=== PATIENT | female | born 1950 | race Two or more races ===

== ENCOUNTER 2020-07-12 17:25 | Outpatient (REF) | payer MEDICARE, MEDICAID, SELFPAY ==
--- NOTE | ~2020-07-12 | XR_ITS ---
EXAMINATION: XR HAND, RIGHT CLINICAL INFORMATION: Right hand and finger pain COMPARISON: None TECHNIQUE: PA, lateral, and oblique views of the right hand. FINDINGS: There is bilateral loss of PIP and DIP joint space with mild periarticular spurring PIP joint fifth digit and erosive changes DIP joints third digit. No acute fracture or dislocation seen. No lytic process. Minimal styloid process fracture. The soft tissues are normal. XR/XR hand RT min 3V IMPRESSION: Mild degenerative changes PIP and DIP joints with periarticular spurring. Mild soft tissue swelling PIP joint fifth digit likely secondary to arthritis. There is no visible acute fracture or dislocation seen in the right hand and wrist area. There is old ulnar styloid process fracture.
== END 2020-07-12 17:26 | disposition home or self-care (01) ==
LOC: HO.XRAY 17:25
PROVIDERS: PCP Family Medicine; Visit Provider Emergency Medicine
DX: M79.641 Pain in right hand (principal); M79.644 Pain in right finger(s)
CPT/HCPCS: 73130

== ENCOUNTER 2021-02-26 16:20 | Outpatient (REF) | payer MEDICARE, MEDICAID, SELFPAY ==
--- NOTE | ~2021-02-26 | MM_ITS ---
EXAMINATION: MM SCREENING DIGITAL BREAST TOMOSYNTHESIS, BILATERAL CLINICAL INFORMATION: Screening. Asymptomatic. The lifetime risk of breast cancer based on the Tyrer-Cuzick Model is 3%. COMPARISON: Mammography: 05/18/2018, 09/06/2015 TECHNIQUE: Digital breast tomosynthesis is performed in both the craniocaudal and mediolateral oblique views along with computer-aided detection (CAD). Synthesized 2D images are generated from the tomosynthesis. Additional bilateral exaggerated CC views are provided. FINDINGS: There are scattered areas of fibroglandular density (ACR BI-RADS breast composition Category b). There are no significant masses, abnormal calcifications, or other abnormalities. There are scattered bilateral ductal secretory, vascular, and round and rim calcifications. The axilla and skin contours are unremarkable. No significant changes. MM/MM tomosynthesis screening BI IMPRESSION: No mammographic evidence of malignancy. ASSESSMENT: BI-RADS 2: Benign RECOMMENDATION: Routine annual mammography screening. This patient's information was entered into a reminder system with a target due date for their next mammogram.
== END 2021-02-26 16:21 | disposition home or self-care (01) ==
LOC: HO.MAMMO 16:20
PROVIDERS: PCP Family Medicine; Visit Provider Family Medicine
DX: Z12.31 Encounter for screening mammogram for malignant neoplasm of breast (principal)
CPT/HCPCS: 77063; 77067

== ENCOUNTER 2022-03-31 15:53 | Outpatient (REF) | payer MEDICARE, MEDICAID, SELFPAY ==
--- NOTE | ~2022-03-31 | XR_ITS ---
EXAMINATION: XR CHEST CLINICAL INFORMATION: Cough COMPARISON: 05/04/2012 TECHNIQUE: 2 views of the chest were obtained. FINDINGS: The lungs are well expanded. There is no focal consolidation, edema, or effusion. No pneumothorax. The cardiomediastinal silhouette is within normal limits. No acute osseous abnormality. Mild degenerative change of the spine. XR/XR chest 2V IMPRESSION: Clear lungs.
== END 2022-03-31 15:54 | disposition home or self-care (01) ==
LOC: HO.XRAY 15:53
PROVIDERS: Absent Provider Family Medicine; PCP Family Medicine; Visit Provider Emergency Medicine
DX: R05.9 Cough, unspecified (principal)
CPT/HCPCS: 71046

== ENCOUNTER 2022-06-05 14:06 | Outpatient (REF) | payer MEDICARE, MEDICAID, SELFPAY ==
--- NOTE | ~2022-06-05 | US_ITS ---
EXAMINATION: US VENOUS ULTRASOUND WITH DOPPLER LOWER EXTREMITY, LEFT CLINICAL INFORMATION: Left leg swelling. COMPARISON: None available. TECHNIQUE: Ultrasound of the deep veins is performed from the hip to the calf with compression sonography and color and pulse Doppler assessment. Spectral analysis with color-flow imaging is performed. FINDINGS: There is normal venous compression and respiratory variation and augmented flow. The visualized common femoral vein, superficial femoral vein, profunda femoral vein, popliteal vein, and the trifurcation region shows no evidence of deep venous thrombosis. There is no significant popliteal fossa cyst. If the patient's symptoms persist, followup ultrasound in 5 days 7 days might be of value to exclude proximal propagation from a non-visualized calf vein. US/US venous duplex LE IMPRESSION: No DVT demonstrated in the left lower extremity.
== END 2022-06-05 14:07 | disposition home or self-care (01) ==
LOC: HO.US 14:06
PROVIDERS: PCP Family Medicine; Visit Provider Emergency Medicine
DX: M79.662 Pain in left lower leg (principal); M79.89 Other specified soft tissue disorders
CPT/HCPCS: 93971

== ENCOUNTER 2023-09-07 12:23 | Outpatient (REF) | payer OTHER, SELFPAY ==
[2023-09-07 13:37] LABS: Estimated Average Glucose 200 mg/dL; Hemoglobin A1c % 8.6 % (<6.0)
[2023-09-07 13:47] LABS: Alanine Aminotransferase 23 U/L (0-31); Alkaline Phosphatase 103 U/L (39-117); Anion Gap 13 (12-20); Aspartate Amino Transferase 18 U/L (5-31); Bilirubin Direct 0.3 mg/dL (0.0-0.5); Bilirubin Total 0.8 mg/dL (0.0-1.0); Blood Urea Nitrogen 10 mg/dL (9-16); Carbon Dioxide 28 mmol/L (22-29); Chloride 103 mmol/L (96-108); Cholesterol 122 mg/dL (<200); Estimated Glomerular Filt Rate > 60; Glucose Random 194 mg/dL (60-115); HDL Cholesterol 36 mg/dL (>40); LDL Cholesterol Calculated 65 mg/dL (<100); Potassium 3.9 mmol/L (3.3-5.1); Sodium 140 mmol/L (135-145); Total Protein 7.6 g/dL (6.5-8.0); Triglycerides 107 mg/dL (<150)
[2023-09-07 14:01] LABS: Creatinine Urine 140.64 mg/dL; Microalbum/Creatinine Ratio Ur 6.3 ug/mg cr (<30)
[2023-09-07 14:06] LABS: TSH reflex Free T4 2.96 uIU/mL (0.32-4.0)
== END 2023-09-07 12:24 | disposition home or self-care (01) ==
LOC: HO.HHCL 12:23
PROVIDERS: Visit Provider Family Medicine
DX: E11.9 Type 2 diabetes mellitus without complications (principal); E03.9 Hypothyroidism, unspecified
CPT/HCPCS: 36415; 80048; 80061; 80076; 82043; 82570; 83036; 84443

== ENCOUNTER 2023-10-06 10:25 | Outpatient (REF) | payer OTHER, SELFPAY | END 2023-10-06 10:26 | disposition home or self-care (01) | LOC: HO.HOSX 10:25 | PROVIDERS: Visit Provider Orthopaedic Surgery | DX: M25.511 Pain in right shoulder (principal) | CPT/HCPCS: 99202 ==

== ENCOUNTER 2023-10-06 15:20 | Outpatient (AMB) | payer OTHER, SELFPAY ==
--- NOTE | 2023-10-06 15:23 | MHC.OFFVIS ---
Vital Signs 10/06/23 15:29 Height 5 ft 2 in Weight 200 lb 9.93 oz BMI 36.7 Intake Visit Reasons: HOUSEKEEPING STAFF Chronic Right Shoulder Pain, no known injury Intake Note: Holli is a 73 year old female who presents to the office today with her spouse for a new patient visit for Chronic Right Shoulder Pain. Reports prior injury about 2-3 years ago. The patient states that she slipped and fell onto her right arm suffering a fracture. The patient states that she has been doing qgfua-ry-[id number] exercises which gave her fairly good relief. She has also been using topical cream which gives her good relief. She does not wish for an injection. The patient states that at this point her right shoulder discomfort is tolerable to her. She reports mild weakness when lifting her right hand above shoulder height. She does not take any medicines for her discomfort. Patient Services Manager Required: Yes Patient Services Manager Language: Graphics Manager Services: Patient Services Manager Present Patient Services Manager Name: DEBRA Robert/LYNNE Medication List - Last Reconciled 10/06/23 by Giorgi Sheffield MD cetirizine 10 mg PO DAILY clobetasol 0.05% topical flash glucose sensor (FreeStyle Loco 2 Sensor kit) As directed insulin glargine (Lantus Solostar U-100 Insulin) units subcut levothyroxine 100 mcg PO DAILY metoprolol succinate ER 25 mg PO DAILY simvastatin 10 mg PO DAILY [facility] Medical History (Updated 10/02/23 @ 12:06 by Giorgi Sheffield MD) Cellulitis of lower extremity Surgical History (System 09/01/23 @ 12:15 by Bela Oscar) H/O colonoscopy History of section History of appendectomy Social History (Updated 10/06/23 @ 15:31 by DEBRA Kaur) Current occupation: rt handed Physical Exam Vital Signs: BMI result Body Mass Index 36.7 Const Other: Well-nourished well-developed very friendly female awake alert and oriented x3 in no acute distress Extrem Other: Bilateral upper extremity examination shows good capillary refill, no skin lesions noted, normal sensation light touch Right shoulder examination shows slightly decreased range of motion when compared to her left shoulder, 4+ out of 5 strength with supraspinatus testing, positive impingement signs, tenderness over her acromioclavicular joint, no instability Assessment & Plan Assessment & Plan (1) Right shoulder pain: Code(s): M25.511 - Pain in right shoulder Category: Medical Plan [address] Buckner presents with right shoulder pain due to impingement syndrome and rotator cuff tendinosis versus possible rotator cuff tearing. I had a lengthy discussion with the patient regarding the treatment options. At this point the patient's symptoms are tolerable to her. She wishes to hold off on a cortisone injection. She does not wish to get an MRI. She will continue with her ehhdz-dl-oytnlu exercises to prevent stiffness. She will follow up with me on an as-needed basis should her symptoms worsen in any way. I spent 20 minutes in seeing the patient and documenting in the medical record. Orders: Orders XR shoulder RT min 2V Today M25.511 - Pain in right shoulder Coding Level of Care Code New Pt Level 3 (55436) Diagnoses Right shoulder pain M25.511
[2023-10-06 15:29] VITALS: BMI 36.7
== END 2023-10-06 15:40 | disposition home or self-care (01) ==
LOC: HO.HOS 15:20
PROVIDERS: PCP Family Medicine; Visit Provider Orthopaedic Surgery
DX: M25.511 Pain in right shoulder (principal)
CPT/HCPCS: 99203

== ENCOUNTER 2024-09-16 12:28 | Outpatient (REF) | payer OTHER, SELFPAY ==
--- OUTSIDE RECORDS SUMMARY | 2024-09-16 12:32 | XMS_ITS | Encounter Summary ---
Author Organization [employer] Address [address] [place] [address] Care Team Providers Care Asbestos Abatement Worker Name Role Phone Radha Gustafson MD Primary Care Provider [phone] Delano Crews MD Unavailable [phone] Encounter Details Date Type Department Care Team ([facility] Contact Info) Description 09/14/2024 Telephone [facility] [address] [place], [place] [phone] Radha Gustafson MD [address] [place], [place] [phone] Social History Tobacco Use Types Packs/Day Years Used Date Smoking Tobacco: Never Passive Smoke Exposure: Never Smokeless Tobacco: Never Alcohol Use Standard Drinks/Week Comments Never 0 (1 standard drink = 0.6 oz pur e alcohol) Depression Answer Date Recorded Patient Health Questionnaire-9 Score 0 03/21/2024 Patient Health Questionnaire-9 Score 0 03/21/2024 Last PHQ-9: Questionnaire Data Not on file 0 03/21/2024 Housing Stability Answer Date Recorded What is your housing situation today? I have devante hagen 09/14/[address] you li ve. Do you have problems with any of the following? None of the above 09/14/2024 Food Insecurity Answer Date Recorded Within the past 12 months, y ou worried that your food would run out before you got money to buy more: Never True 09/14/2024 Within the past 12 months,th e food you bought just didn't last and you didn't have enough money to get more: Never True Transportation Answer Date Recorded In the past 12 months, has l ack of transportation kept you from medical appts, meetings, work or from getting things needed for daily living? No 09/14/2024 Utilities Answer Date Recorded In the past 12 months, has t he electric, gas, oil or water company threatened to shut off services in your home? No 09/14/2024 Depression Answer Date Recorded Patient Health Questionnaire-2 Score 0 03/21/2024 Internet Access Answer Date Recorded Internet Access Q1 No 09/14/2024 Internet Access Q2 I do not want or need it 08/24 Comments Unknown Sex and Gender Information Value Date Recorded Sex Assigned at Female 12/23/2021 10:16 AM EDT Legal Sex Female 10:16 AM EDT Gender Identity Female 12/23/2021 10:16 AM EDT Sexual Orientation Choose not to disclose 2021 10:16 AM EDT documented as of this encounter Miscellaneous Notes * Telephone Encounter - Radha Gustafson MD - 09/14/2024 3:59 PM EDT Please write for incontinence pads dx incontinence. Thank you. documented in this encounter Plan of Treatment Not on file documented as of this encounter Visit Diagnoses Not on filedocumented in this encounter Additional Health Concerns Assessment Noted Time PHQ-9 Depression Total Score: 0 03/21/19 25 11:45 AM EST documented as of this encounter Care Teams Asbestos Abatement Worker Relationship Specialty Start Date End Date Radha Gustafson MD [address] [place] [address] PCP - General Family Medicine 02/23/18 Delano Crews MD [address] [place] [address] Cardiology 03/28/24 Radha Alonso [facility] Endocrinology and Diabetes [address] [place] [address] Endocrinology 03/01/24 documented as of this encounter
--- OUTSIDE RECORDS SUMMARY | 2024-09-16 12:32 | XMS_ITS | Clinical Summary ---
Author Organization [facility] Address [address] [place] [address] Care Team Providers Care Senior Etl Developer Name Role Phone Radha Gustafson MD Primary Care Provider [phone] Medical History Medical History Date Comments Dyslipidemia 01/27/2012 DX:Dyslipidemia Hypertension 01/27/2012 DX:Hypertension Hypothyroidism 01/29/2012 DX:Hypothyroidis m Depression 01/27/2012 DX:Depression Other hyperlipidemia 05/13/2018 DX:Other hy perlipidemia Vaginal itching 05/08/2020 DX:Vaginal itchi ng Social History Tobacco Use Types Packs/Day Years Used Date Smoking Tobacco: Never Smokeless Tobacco: Never Alcohol Use Standard Drinks/Week Comments No 0 (1 standard drink = 0.6 oz pur e alcohol) Comments Unknown Sex and Gender Information Value Date Recorded Sex Assigned at Not on file Legal Sex Female 4:37 AM EST Gender Identity Not on file Sexual Orientation Not on file Obstetrics History Last Filed Vital Signs Vital Sign Reading Time Taken Comments Blood Pressure 120/60 10/29/2021 1:44 PM EDT Sit ting L Arm Pulse 75 10/29/2021 1:44 PM EDT Temperature - - Respiratory Rate - - Oxygen Saturation - - Inhaled Oxygen Concentration - - Weight 89.8 kg (198 lb) 10/29/2021 1:44 PM EDT Height 157.5 cm (5' 2 ) 10/29/2021 1:44 PM EDT Body Mass Index 36.21 10/29/2021 1:44 PM EDT Plan of Treatment Health Maintenance Due Date Last Done Comments Diabetes: Annual GFR (Glomer ular Filtration Rate) 1950 Diabetes: Annual Foot Exam 1960 Diabetes: Annual Retina Eye Exam 1960 DTaP,Tdap,and Td Vaccines (1 - Tdap) 1969 Pneumococcal Vaccine: 50+ Ye ars (1 of 1 - PCV) 2000 Zoster Vaccines (1 of 2) 2000 RSV Immunization Adult Patie nts (1 - Risk 60-74 years 1-dose series) 2010 Cholesterol Screening (Lipid Panel) 01/26/2022 Colorectal Cancer Screening: Colonoscopy 01/26/2022 Falls Risk Assessment 01/26/2022 Hepatitis C Screening 01/26/2022 Osteoporosis Screening (Bone Density Screening) 01/26/2022 Social Influencers of Health Screening 01/26/2022 Hypertension/CHF/CAD Annual BMP Blood Test 02/02/2022 Diabetes: Annual Urine Albumin-Creatinine Ratio (uACR) 02/08/2022 Diabetes: Blood Sugar Contro l Test (HGBA1C) 02/08/2022 COVID-19 Vaccine (2023-2 5 season) 2023 Depression Screening 02/24/2024 Influenza Vaccine (#1) 2024 12/16/2018 Breast Cancer Screening 11/18/2025 11/19/2023 HIB Vaccines Aged Out No longer eligi ble based on patient's age to complete this topic HPV Vaccines Aged Out No longer eligi ble based on patient's age to complete this topic Hepatitis A Vaccines Aged Out No long er eligible based on patient's age to complete this topic Hepatitis B Vaccines Aged Out No long er eligible based on patient's age to complete this topic IPV Vaccines Aged Out No longer eligi ble based on patient's age to complete this topic MMR Vaccines Aged Out No longer eligi ble based on patient's age to complete this topic Meningococcal ACWY Vaccine Aged Out N o longer eligible based on patient's age to complete this topic Meningococcal B Vaccine Aged Out No l onger eligible based on patient's age to complete this topic RSV Immunization Patients Un brennan 20 months Aged Out No longer eligible b ased on patient's age to complete this topic Varicella Vaccines Aged Out No longer eligible based on patient's age to complete this topic Procedures Procedure Name Priority Date/Time Associated Diagnosis Comments [facility] SCREENING DIGITAL Routine 11/19/2023 5:13 PM EDT Encounter for screening mammogram for malignant neoplasm of breast from Last 3 Months or Most Recently Relevant to Health Maintenance Results * [facility] SCREENING DIGITAL (11/19/2023 5:13 PM EDT) Anatomical Region Laterality Modality Mammography 11/05/2023 10:3 1 AM EDT Narrative 11/19/2023 5:13 PM EDT [facility] Diagnostic Imaging Department [address] [place] [id number] Patient: SULTANA ROMEOHOLLI ADRIAN/Age/Sex: 1950 - 73 - F Unit#: [id number] [facility] CLI Mnemonic/Ordering Site: [facility] Ordering Physician: RADHA GUSTAFSON [facility] Screening Digital - 11/05/23 - 1052 Report Status:Signed EXAM: [facility] Screening Digital EXAM DATE AND TIME: 11/05/2023 10:53 AM HISTORY: Screening. COMPARISON: Previous outside mammograms have arrived for comparison by this date. If these arrive, comparison will be made and an addendum issued. TECHNIQUE: Bilateral digital breast tomosynthesis was performed in the CC and MLO projections. Computer aided detection with Lellan 3D 3.1 was employed. TISSUE DENSITY: b. There are scattered areas of fibroglandular density. FINDINGS: No suspicious masses, grouped microcalcifications, or areas of architectural distortion are seen. Benign rim and secretory calcifications are noted. Vascular calcification is present. The skin is unremarkable. IMPRESSION: No mammographic evidence of malignancy is seen. A negative mammogram in the presence of a clinically suspicious palpable abnormality does not preclude the possibility of malignancy or alter the indications for biopsy. BI-RADS: Category 2: Benign RECOMMENDATION(S): 1: Routine screening mammogram BILATERAL in 1 year. [facility] [address] [place] [address] Dictating Physician: YASMINE AVILA MD Electronically Signed by: YASMINE AVILA MD Dic Date/Time: 11/19/231711 Sign date/Time: 11/19/231712 Procedure Note Yasmine Avila MD - 12/09/2023 [facility] Diagnostic Imaging Department [address] [place] [address] Patient: JENN ROMEOHOLLI ADRIAN./Age/Sex: 1950 - 73 - F Unit#: [id number] Location/Status: [facility] Mnemonic/Ordering Site: [facility] Ordering Physician: RADHA GUSTAFSON [facility] Screening Digital - 11/05/23 - 1052 Report Status:Signed EXAM: [facility] Screening Digital EXAM DATE AND TIME: 11/05/2023 10:53 AM HISTORY: Screening. COMPARISON: Previous outside mammograms have arrived for comparison bythis date. If these arrive, comparison will be made and an addendum issued. TECHNIQUE: Bilateral digital breast tomosynthesis was performed in the CCand MLO projections. Computer aided detection with Lellan 3D 3.1was employed. TISSUE DENSITY: b. There are scattered areas of fibroglandular density. FINDINGS: No suspicious masses, grouped microcalcifications, or areas ofarchitectural distortion are seen. Benign rim and secretory calcifications are noted.Vascular calcification is present. The skin is unremarkable. IMPRESSION: No mammographic evidence of malignancy is seen. A negative mammogram in the presence of a clinically suspicious palpable abnormality does not preclude the possibility of malignancy or alter the indications for biopsy. BI-RADS: Category 2: Benign RECOMMENDATION(S): 1: Routine screening mammogram BILATERAL in 1 year. [facility] at [facility] [address] [address] Dictating Physician: YASMINE AVILA MD Electronically Signed by: YASMINE AVILA MD Dic Date/Time: 11/19/23 171 Sign date/Time: 11/19/23 171 Radha Gustafson MD IMG BI PROCEDURES Final Re sult from Last 3 Months or Most Recently Relevant to Health Maintenance Care Teams Senior Etl Developer Relationship Specialty Start Date End Date Radha Gustafson MD [address] [place] [id number] PCP - General Internal Medicine 12/25/13
[2024-09-16 13:26] LABS: Hemoglobin A1C 302.4834 umol/L; Total Hemoglobin (HGBA1C) 3721.9193 umol/L
[2024-09-16 13:48] LABS: Alanine Aminotransferase 21 U/L (0-31); Albumin Level 3.8 g/dL (3.5-5.0); Alkaline Phosphatase 79 U/L (39-117); Anion Gap 9 (12-20); Aspartate Amino Transferase 19 U/L (5-31); Blood Urea Nitrogen 11 mg/dL (9-16); Calcium 8.8 mg/dL (8.4-10.2); Carbon Dioxide 28 mmol/L (22-29); Chloride 106 mmol/L (96-108); Cholesterol 102 mg/dL (<200); Estimated Glomerular Filt Rate > 60; HDL Cholesterol 31 mg/dL (>40); Potassium 4.2 mmol/L (3.3-5.1); Sodium 139 mmol/L (135-145); Total Protein 7.1 g/dL (6.5-8.0); Triglycerides 98 mg/dL (<150)
[2024-09-16 14:28] LABS: Microalbum/Creatinine Ratio Ur 6.2 ug/mg cr (<30)
== END 2024-09-16 12:29 | disposition home or self-care (01) ==
LOC: HO.LAB 12:28
PROVIDERS: PCP Family Medicine; Visit Provider Family Medicine
DX: E11.9 Type 2 diabetes mellitus without complications (principal)
CPT/HCPCS: 36415; 80048; 80061; 80076; 82043; 82570; 83036